=== PATIENT | male | born 1980 | race American Indian/Alaskan Native ===

== ENCOUNTER 2016-11-21 19:40 | Emergency (ER) | payer BC, OTHER ==
[2016-11-21 19:40] VITALS: BMI 29.9
[2016-11-21 19:49] VITALS: BP 147/73; PULSE 90; RESP 16; TEMP 101.1; O2SAT 98
--- NOTE | 2016-11-21 20:39 | ED PDOC ---
HPI: CCC, URI, Sore Throat Time Seen by Provider: 11/21/16 20:06 Chief Complaint (Nursing): Flu-like Symptoms Chief Complaint (Provider): URI History Per: Patient History/Exam Limitations: no limitations Have you had recent travel within the past 21 days to any of the following countries: [place], [place], [place] or [place]?: No Onset/Duration Of Symptoms: Days (3) Current Symptoms Are (Timing): Still Present Location Of Pain: Throat, Diffuse Myalgias Sick Contacts (Context): None Associated Symptoms: Fever, Chills, Cough, Sputum, Sinus Drainage, Myalgias, Nasal Congestion Additional Complaint(s): 36yo M in ED for eval of cough-sputum production(green)/congestion/boy aches, fever chills -state he was in [facility] and came today via airplane. Past Medical History Reviewed: Historical Data, Nursing Documentation, Vital Signs Vital Signs: Last Vital Signs Temp 101.1 F H 11/21/16 19:46 Pulse 90 11/21/16 19:46 Resp 16 11/21/16 19:46 BP 147/73 11/21/16 19:46 Pulse Ox 98 11/21/16 19:46 - Medical History PMH: No Chronic Diseases - Family History Family History: States: Unknown Family Hx - Home Medications Home Medications: Ambulatory Orders Medication Instructions Recorded Azithromycin [Zithromax] 250 mg PO DAILY #6 tab 11/21/16 Guaifenesin [Mucinex] 600 mg PO BID #14 tab.er.12h 11/21/16 - Allergies Allergies/Adverse Reactions: Allergies Allergy/AdvReac Type Severity Reaction Status Date / Time No Known Allergies Allergy Verified 06/19/15 03:02 Review of Systems ROS Statement: Except As Marked, All Systems Reviewed And Found Negative Constitutional: Positive for: Fever, Chills, Malaise Respiratory: Positive for: Cough Physical Exam - Reviewed Nursing Documentation Reviewed: Yes Vital Signs Reviewed: Yes - Physical Exam Appears: Positive for: Non-toxic, No Acute Distress, Uncomfortable Skin: Positive for: Normal Color, Warm Eye Exam: Positive for: Normal appearance, EOMI, PERRL ENT: Positive for: Normal ENT Inspection Neck: Positive for: Normal, Painless ROM Cardiovascular/Chest: Positive for: Regular Rate, Rhythm Respiratory: Positive for: CNT, Normal Breath Sounds Neurologic/Psych: Positive for: Alert, Oriented - ECG O2 Sat by Pulse Oximetry: 98 - Radiology X-Ray: Interpreted by Me X-Ray Interpretation: No Acute Disease Medical Decision Making Medical Decision Making: Pt given motrin for fever. pt will be Rx Z-pack and muicinex advised to have pmd f.u Disposition - Clinical Impression Clinical Impression: Upper respiratory infection - Patient ED Disposition Is Patient to be Admitted: No Counseled Patient/Family Regarding: Studies Performed, Diagnosis, Need For Followup, Rx Given - Disposition Disposition Time: 20:44 Condition: STABLE Prescriptions: Azithromycin [Zithromax] 250 mg PO DAILY #6 tab Guaifenesin [Mucinex] 600 mg PO BID #14 tab.er.12h Instructions: Upper Respiratory Infection (ED)
--- NOTE | 2016-11-22 09:44 | RAD ---
HISTORY: cough COMPARISON: 04/22/2012 TECHNIQUE: Chest PA and lateral FINDINGS: LUNGS: No active pulmonary disease. PLEURA: No significant pleural effusion identified. No pneumothorax apparent. CARDIOVASCULAR: Normal. OSSEOUS STRUCTURES: No significant abnormalities. VISUALIZED UPPER ABDOMEN: Normal. OTHER FINDINGS: None. IMPRESSION: No active disease.
--- NOTE | 2016-11-22 19:36 | CARD ---
APPROVED REPORT EKG Measurement Heart [id number] <Conclusion> Normal sinus rhythm Possible Left atrial enlargement Borderline ECG
== END 2016-11-21 21:10 | disposition home or self-care (01) ==
LOC: H.ER 19:40
DX: J06.9 Acute upper respiratory infection, unspecified (principal)